=== PATIENT | male | born 1980 | race Two or more races ===

== ENCOUNTER 2018-09-26 00:47 | Emergency (ER) | payer SELFPAY ==
[~2018-09-26] VITALS: Ht 175.3 cm; Wt 120.2 kg
[2018-09-26 00:58] VITALS: BP 132/77
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
--- NOTE | 2018-09-26 01:01 | NUR ---
ED Nurse Note: Patient cleared for discharge, no s/s of acute distress, ambulatory with steady gait. Patient departed in police custoddy.
[2018-09-26 01:04] VITALS: BP 132/77
== END 2018-09-26 01:04 ==
LOC: EMR 01:01
DX: S00.81XA Abrasion of other part of head, initial encounter (principal); X58.XXXA Exposure to other specified factors, initial encounter; Y92.9 Unspecified place or not applicable; E66.9 Obesity, unspecified; Z68.39 Body mass index [BMI] 39.0-39.9, adult
CPT/HCPCS: 99282